=== PATIENT | male | born 1945 | race Caucasian/White ===

== ENCOUNTER 2016-07-25 10:27 | Day surgery (SDC) | payer OTHER ==
[~2016-07-25 10:27] MED LIST: DIPRIVAN VIAL ONE
[2016-07-25] MEDS ORDERED: TETRACAINE 0.5% OPHTH 1 DOSE AFFEYE ONE ×2 (10:45→14:35)
[2016-07-25] MEDS ORDERED: VIGAMOX 0.5% OPHTH 1 DOSE AFFEYE ONE ×5 (10:46→15:01)
[2016-07-25] MEDS ORDERED: NS 500 ML IV 500 ML IV ONE (10:52)
[2016-07-25] MEDS ORDERED: PROLENSA OPHTH 1 DOSE AFFEYE ONE (10:57)
[2016-07-25] MEDS ORDERED: ALPHAGAN-P OPHTH 1 DOSE AFFEYE ONE (10:58)
[2016-07-25] MEDS ORDERED: AK-DILATE 2.5% OPHTH 1 DOSE OP ONE ×4 (10:59→11:02)
[2016-07-25] MEDS ORDERED: MYDRIACIL OPHTH 1 DOSE AFFEYE ONE ×4 (10:59→11:02)
[2016-07-25] MEDS ORDERED: CYCLOGYL 1% OPHTH 1 DOSE OP ONE ×4 (10:59→11:02)
[2016-07-25] MEDS ORDERED: BETADINE OPHTH SOLN 5% EACHEYE ONE (14:35)
[2016-07-25] MEDS ORDERED: ADRENALINE CHL INJ IJ ONE (14:49)
[2016-07-25] MEDS ORDERED: BSS OPHTH (PLAIN) 500 ML with VANCOMYCIN HCL 500 MG VIAL 25 MG, ADRENALINE CHL INJ 1 MG IR ONE ×3 (14:49)
[2016-07-25] MEDS ORDERED: XYLOCAINE-MPF 1% IJ ONE (14:49)
[2016-07-25] MEDS ORDERED: DUOVISC IO ONE (14:49)
[2016-07-25 17:32] VITALS: BP 138/71
== END 2016-07-25 15:30 | disposition home or self-care (01) ==
LOC: SURG1 10:27
PROVIDERS: ATTEND Ophthalmology
PROC: 08RK3JZ Replacement of Left Lens with Synthetic Substitute, Percutaneous Approach (ICD-10-PCS; principal; 2016-07-25 19:15)
PROC: 08DK3ZZ Extraction of Left Lens, Percutaneous Approach (ICD-10-PCS; principal; 2016-07-25 19:15)
DX: H25.12 Age-related nuclear cataract, left eye (principal); H25.012 Cortical age-related cataract, left eye
CPT/HCPCS: 99100; A4217; J0170; J3370; J3490

== ENCOUNTER 2016-08-08 07:16 | Day surgery (SDC) | payer OTHER ==
[2016-08-08] MEDS: TETRACAINE 0.5% OPHTH 1 DOSE AFFEYE ONE ×2 (08:00→08:45)
[2016-08-08] MEDS: VIGAMOX 0.5% OPHTH 1 DOSE AFFEYE ONE ×4 (08:01→09:17)
[2016-08-08] MEDS: PROLENSA OPHTH 1 DOSE AFFEYE ONE (08:12)
[2016-08-08] MEDS: ALPHAGAN-P OPHTH 1 DOSE AFFEYE ONE (08:13)
[2016-08-08] MEDS: MYDRIACIL OPHTH 1 DOSE AFFEYE ONE ×3 (08:14→08:16)
[2016-08-08] MEDS: CYCLOGYL 1% OPHTH 1 DOSE OP ONE ×3 (08:14→08:16)
[2016-08-08] MEDS: AK-DILATE 2.5% OPHTH 1 DOSE OP ONE ×3 (08:14→08:16)
[2016-08-08] MEDS: NS 500 ML IV 500 ML IV ONE (08:49)
[2016-08-08] MEDS: BETADINE OPHTH SOLN 5% EACHEYE ONE (09:08)
[2016-08-08] MEDS: ADRENALINE CHL INJ IJ ONE (09:13)
[2016-08-08] MEDS: DUOVISC IO ONE (09:13)
[2016-08-08] MEDS: BSS OPHTH (PLAIN) 500 ML with VANCOMYCIN HCL 500 MG VIAL 25 MG, ADRENALINE CHL INJ 1 MG IR ONE ×3 (09:13)
[2016-08-08] MEDS: XYLOCAINE-MPF 1% IJ ONE (09:13)
[2016-08-08] MEDS ORDERED: DIPRIVAN VIAL ONE (10:15)
[2016-08-08 10:22] VITALS: BP 157/78
== END 2016-08-08 09:50 | disposition home or self-care (01) ==
LOC: SURG1 07:16
PROVIDERS: ATTEND Ophthalmology
PROC: 08RJ3JZ Replacement of Right Lens with Synthetic Substitute, Percutaneous Approach (ICD-10-PCS; principal; 2016-08-08 07:30)
PROC: 08DJ3ZZ Extraction of Right Lens, Percutaneous Approach (ICD-10-PCS; principal; 2016-08-08 07:30)
DX: H25.11 Age-related nuclear cataract, right eye (principal); H25.011 Cortical age-related cataract, right eye
CPT/HCPCS: 99100; A4217; J0170; J3370; J3490